=== PATIENT | female | born 2000 | race Caucasian/White ===

== ENCOUNTER 2024-06-21 12:32 | Day surgery (SDC) | payer OTHER ==
[2024-06-17 11:31] VITALS: BMI 25.4
[2024-06-21] MEDS ORDERED: PROPOFOL 20 ML ONE ×2 (14:20→14:23)
[2024-06-21 15:05] VITALS: TEMP 97.7
[2024-06-21 15:08] VITALS: BP 105/58; PULSE 66; RESP 19
== END 2024-06-21 15:15 | disposition home or self-care (01) ==
LOC: FASU-ENDO 12:32
PROVIDERS: ATTEND Internal Medicine Gastroenterology
PROC: 0DBL8ZX Excision of Transverse Colon, Via Natural or Artificial Opening Endoscopic, Diagnostic (ICD-10-PCS; 2024-06-21)
PROC: 0DBM8ZX Excision of Descending Colon, Via Natural or Artificial Opening Endoscopic, Diagnostic (ICD-10-PCS; 2024-06-21)
PROC: 0DBK8ZX Excision of Ascending Colon, Via Natural or Artificial Opening Endoscopic, Diagnostic (ICD-10-PCS; principal; 2024-06-21 14:18)
DX: R19.7 Diarrhea, unspecified (principal); K64.1 Second degree hemorrhoids; K63.89 Other specified diseases of intestine
CPT/HCPCS: 81025; 88305-TC